=== PATIENT | female | born 1955 | race Hispanic/Latino ===

== ENCOUNTER 2020-05-13 05:58 | Day surgery (SDC) | payer OTHER, MEDICARE ==
[~2020-05-13] VITALS: Ht 157.5 cm; Wt 78.0 kg
[2020-05-13] MEDS ORDERED: SODIUM CHLORIDE 0.9% 1000ML 1,000 ML IV ONE (06:18)
[2020-05-13 07:15] VITALS: BP 114/55
[2020-05-13] MEDS ORDERED: [UNRECOGNIZED DRUG - CODE] PF (07:24)
[2020-05-13] MEDS ORDERED: OXYC-43 PO (07:24)
[2020-05-13] MEDS ORDERED: MULT-1203 PO (07:24)
[2020-05-13] MEDS ORDERED: PROPOFOL 10 MG/ML 20ML VIAL IV ONE ×2 (08:47→09:12)
[2020-05-13] MEDS ORDERED: GLYCOPYRROLATE 1 MG/5 ML SYRINGE ONE (09:06)
[2020-05-13 09:20] VITALS: BP 102/54
[2020-05-13 09:25] VITALS: BP 108/59
[2020-05-13 09:30] VITALS: BP 106/61
[2020-05-13 09:35] VITALS: BP 120/57
[2020-05-13 09:40] VITALS: BP 116/77
== END 2020-05-13 10:00 ==
LOC: DAH 05:58 → ENDO 05:58
PROVIDERS: ATTEND Internal Medicine Gastroenterology
DX: R93.5 Abnormal findings on diagnostic imaging of other abdominal regions, including retroperitoneum (principal); Z20.822 Contact with and (suspected) exposure to COVID-19; E66.9 Obesity, unspecified; K95.89 Other complications of other bariatric procedure; F41.9 Anxiety disorder, unspecified; Z98.84 Bariatric surgery status; Z90.710 Acquired absence of both cervix and uterus; Z90.89 Acquired absence of other organs; Z98.890 Other specified postprocedural states; Z90.3 Acquired absence of stomach [part of]; Z80.0 Family history of malignant neoplasm of digestive organs; Z79.899 Other long term (current) drug therapy
CPT/HCPCS: 43237; A4215 ×3; A4216; A4221; A4222; A4223; A4606; A4620; A4657; A4663; C9803; J2704 ×2; J3490; J7030; U0003